=== PATIENT | female | born 1975 | race Caucasian/White ===

== ENCOUNTER 2025-01-27 15:47 | Outpatient (CLI) | payer MEDICAID, SELFPAY ==
[2025-01-27 16:08] LABS: ESR 1 mm/hr (0-20)
[2025-01-27 17:33] LABS: C-Reactive Protein 0.81 mg/dL (<or=0.5)
[2025-01-28 20:08] LABS: Rheumatoid Factor <8.6 IU/mL (<12.0)
[2025-01-29 10:05] LABS: ANA Interpretation Negative (Negative)
[2025-01-29 12:45] LABS: Ro60 Ab, IgG <7.0 CU (<20.0); SS-A/Ro, IgG <2.3 CU (<20.0); SS-B (La) Ab, IgG 6.7 CU (<20.0)
[2025-01-29 18:55] LABS: Myeloperoxidase Ab IgG <0.2 U (>=0.4); Proteinase 3 Ab (PR3) <0.2 U
== END 2025-01-27 15:48 | disposition home or self-care (01) ==
LOC: LBO 15:48
PROVIDERS: PCP Nurse Practitioner Family; Visit Provider Otolaryngology
DX: E50.7 Other ocular manifestations of vitamin A deficiency (principal); K11.7 Disturbances of salivary secretion
CPT/HCPCS: 36415; 85652; 83516; 86038; 86140; 86235; 86431

== ENCOUNTER 2025-03-10 08:04 | Outpatient (REF) | payer MEDICAID, SELFPAY ==
--- NOTE | 2025-03-10 07:40 | LIPBX_PTH ---
PATIENT: Linh Salinas LOC: [facility] U#:[id number] AGE/SX: 49/F ROOM: RE03/10/[address]: Robbi Redding MD : 1975 BED: DIS: 03/10/2025 SPEC #: [id number] RECD: 03/10/25 12:44 STATUS: FAM REQ #: [id number] HARMONY: 03/10/25 07:[address]: Robbi Redding DEPT: Surgical Specimen RECD BY: Suzanne Jackson ENTERED: 03/10/25 12:47 SP TYPE: LIPBX OTHR DR: Melba Vega Tissues: 1 - LIP BIOPSY/RESECTION Procedures: GROSS AND MICRO LEVEL 4 Comments: [id number]
== END 2025-03-10 08:05 | disposition home or self-care (01) ==
LOC: LBN 08:04
PROVIDERS: PCP Nurse Practitioner Family; Visit Provider Otolaryngology
DX: E50.7 Other ocular manifestations of vitamin A deficiency (principal); K11.7 Disturbances of salivary secretion
CPT/HCPCS: 88305